=== PATIENT | female | born 1950 | race Caucasian/White ===

== ENCOUNTER 2016-08-13 09:34 | Outpatient (CLI) | payer OTHER ==
[2015-09-04 11:05] VITALS: BP 155/89
[2016-08-13 10:31] LABS: eGFR (African) > 60; eGFR (Non-African) > 60
== END 2016-08-13 09:35 ==
LOC: LAB 09:34
PROVIDERS: ATTEND Family Medicine
DX: E78.2 Mixed hyperlipidemia (principal)
CPT/HCPCS: 36415; 80053; 80061